=== PATIENT | female | born 1975 | race Caucasian/White ===

== ENCOUNTER 2023-04-19 10:15 | Outpatient (CLI) | payer OTHER, SELFPAY ==
--- NOTE | 2023-04-19 10:45 | MM_ITS ---
Patient: MARKOS POWER Facility:?[facility] Patient ID:?[id number] Site Patient ID:?[id number]. Site :?1975 Study:?XRay-Breast Bilateral 3D screening mammogram w/cad-04/19/2023 10:52:45 AM Ordering Physician:NAPOLEON Final Report: BILATERAL DIGITAL SCREENING MAMMOGRAM WITH COMPUTER-AIDED DETECTION AND TOMOSYNTHESIS CLINICAL HISTORY: Routine screening exam. COMPARISON: 04/26/2021, 04/22/2020, 03/09/2019, 02/12/2017 TECHNIQUE: Digital mammogram in CC and MLO projections including computer-aided detection (CAD) and tomosynthesis. BREAST COMPOSITION: There are scattered areas of fibroglandular density. FINDINGS: RIGHT Breast: Focal asymmetric density lateral right breast CC view only, 12 cm from the nipple. LEFT Breast: No suspicious findings. IMPRESSION: RIGHT breast asymmetry/mass. RECOMMENDATIONS: Additional mammographic views of the RIGHT breast including 3D spot compression CC and 3D true lateral. RIGHT breast ultrasound may also be required. The [facility] will contact the patient. A lay language report of this examination will be provided to the patient. BI-RADS Category 0: Incomplete: Need Additional Imaging Evaluation and/or Prior Mammograms for Comparison Dictated by Ezio Sandhu MD @ 04/19/2023 12:07:[address]/Dictated by: Ezio Sandhu MD @ 04/19/2023 12:07:00 PM Signed by:?Ezio Sandhu MD @04/19/2023 3:00:03 PM (Electronic Signature)
== END 2023-04-19 10:16 | disposition home or self-care (01) ==
LOC: MAMMO 10:16
PROVIDERS: PCP Family Medicine; Visit Provider Obstetrics & Gynecology
DX: Z12.31 Encounter for screening mammogram for malignant neoplasm of breast (principal); N63.10 Unspecified lump in the right breast, unspecified quadrant
CPT/HCPCS: 77063; 77067

== ENCOUNTER 2023-04-26 10:34 | Outpatient (CLI) | payer OTHER, SELFPAY | END 2023-04-26 10:35 | disposition home or self-care (01) | LOC: NFLDREF 05-01 12:26 | PROVIDERS: PCP Family Medicine; Referring Provider Family Medicine; Visit Provider Obstetrics & Gynecology | DX: Z13.220 Encounter for screening for lipoid disorders (principal); Z13.818 Encounter for screening for other digestive system disorders | CPT/HCPCS: 80061; 84450; 84460 ==

== ENCOUNTER 2023-05-01 07:31 | Outpatient (CLI) | payer OTHER, SELFPAY ==
--- NOTE | 2023-05-01 07:45 | MM_ITS ---
Patient: MARKOS POWER Facility:?[facility] Patient ID:?[id number] Site Patient ID:?[id number]. Site :?1975 Study:?XRay-Breast Right 3D W/CAD-05/01/2023 8:37:52 AM Ordering Physician:?Eduarda Noonan Final Report: DIGITAL DIAGNOSTIC RIGHT MAMMOGRAM PERFORMED USING TOMOSYNTHESIS AND COMPUTER- AIDED DETECTION RIGHT BREAST ULTRASOUND CLINICAL HISTORY: RIGHT breast mass/asymmetry. COMPARISON: 04/19/2023. TECHNIQUE: Digital RIGHT mammogram in two projections. Tomosynthesis and CAD utilized. Real-time ultrasound imaging of RIGHT breast with imaging documentation. Scanning was performed by both the technologist and the radiologist. BREAST COMPOSITION: There are areas of scattered fibroglandular density. FINDINGS: 3D true lateral and 3D spot compression CC RIGHT breast mammogram images submitted. Focal asymmetric density located within the inferior RIGHT breast. No suspicious calcifications. Targeted RIGHT breast ultrasound performed. At 7 o`clock 8 cm from the nipple, there is a hypoechoic structure measuring 3 x 3 x 3 millimeters. Mild fibrocystic changes are present adjacent to this region. IMPRESSION: Indeterminate 3 millimeter hypoechoic structure RIGHT breast 7 o`clock 8 cm from the nipple at mid depth associated with fibroglandular tissue. RECOMMENDATIONS: Ultrasound-guided core needle biopsy. Results and recommendations discussed with the patient. BI-RADS Category 4: Suspicious A lay language report of this examination will be provided to the patient. Dictated by Ezio Sandhu MD @ 05/01/2023 12:03:39 PM jj/Dictated by: Ezio Sandhu MD @ 05/01/2023 12:03:00 PM Signed by:?Ezio Sandhu MD @05/01/2023 2:42:43 PM (Electronic Signature)
--- NOTE | 2023-05-01 08:15 | US_ITS ---
Patient: MARKOS POWER Facility:?[facility] Patient ID:?[id number] Site Patient ID:?[id number]. Site :?1975 Study:?US-Breast Right -05/01/2023 8:38:33 AM Ordering Physician:NAPOLEON Final Report: PLEASE SEE DIGITAL DIAGNOSTIC RIGHT MAMMOGRAM PERFORMED SAME DAY CRL:max santana/Dictated by: Ezio Sandhu MD @ 05/01/2023 12:03:00 PM Signed by:?Ezio Sandhu MD @05/01/2023 2:42:44 PM (Electronic Signature)
== END 2023-05-01 07:32 | disposition home or self-care (01) ==
PROVIDERS: PCP Family Medicine; Visit Provider Obstetrics & Gynecology
DX: N63.10 Unspecified lump in the right breast, unspecified quadrant (principal); R92.8 Other abnormal and inconclusive findings on diagnostic imaging of breast
CPT/HCPCS: 76642; 77065; G0279

== ENCOUNTER 2023-05-17 10:54 | Outpatient (CLI) | payer OTHER, SELFPAY ==
--- NOTE | 2023-05-17 11:15 | US_ITS ---
Patient: MARKOS POWER Facility:?[facility] Patient ID:?[id number] Site Patient ID:?[id number]. Site :?1975 Study:?US-Breast Right DR PAGAN TO READ-05/17/2023 11:56:40 AM Ordering Physician:?ADOLPH DALEY Final Report: ULTRASOUND-GUIDED CORE NEEDLE BREAST BIOPSY OF TWO OR MORE SITES AND POST-BIOPSY DIGITAL MAMMOGRAM FOR BIOPSY MARKER PLACEMENT CLINICAL HISTORY: Indeterminate solid nodules. COMPARISON STUDIES: 05/01/2023. TECHNIQUE: Real-time ultrasound with image documentation was used for targeting the breast lesions. A core needle biopsy system was used to obtain core tissue samples with an 18 gauge needle. Post-biopsy CC and ML digital mammograms were obtained to document position of the biopsy marker. CONSENT and TIME OUT: The procedure, risks, and alternatives were explained to the patient and a consent was signed. [place] Protocol was followed including pre-procedure verification that relevant information/documentation was available, reviewed and properly matched to the patient; consent accurate and complete; and equipment and supplies available. Time Out was conducted just prior to starting procedure to verify the four required elements: patient identity, correct side/site marked (if applicable), procedure, relevant images/results properly labeled and displayed (if applicable). PROCEDURE: All biopsies were performed in a similar manner. The patient was positioned supine on the ultrasound table. The breast was prepped with Betadine. 8 cc of 1 percent lidocaine used for local anesthesia. Core samples were obtained. A sterile metal biopsy clip was placed percutaneously to laura the lesion position within the breast. The specimens were placed in 10% formalin and sent to the Pathology Department. Pressure was held on the biopsy site until all bleeding subsided. The skin incision was closed with Steri-Strips. An ice pack was positioned over the biopsy site. The patient tolerated the procedure well. Post- biopsy instructions were reviewed with the patient, and a written copy was given to her. SITE A: LATERALITY: Right breast. LESION: 3 millimeter hypoechoic solid nodule 7 o`clock 8 cm from the nipple. SUSPICION: Low. NUMBER OF SAMPLES: 3 BIOPSY CLIP SHAPE: HydroMARK coil. PROXIMITY OF CLIP TO TARGET: Within the lesion. SITE B: LATERALITY: Right breast. LESION: 2 millimeter hypoechoic solid nodule 7 o`clock 8 cm from the nipple. SUSPICION: Low. NUMBER OF SAMPLES: 2. BIOPSY CLIP SHAPE: Oval. PROXIMITY OF CLIP TO TARGET: Within the lesion. DISTANCE BETWEEN: Sites A and B: 1 cm. IMPRESSION: Ultrasound-guided breast biopsy of two or more sites. When the pathology report is available, an addendum to this report will be made. ACR not applicable Dictated by Ezio Pagan MD @ 05/17/2023 1:13:25 PM LORENA/Dictated by: Ezio Pagan MD @ 05/17/2023 1:13:00 PM Signed by:?Ezio Pagan MD @05/17/2023 3:12:34 PM --ADDENDUM-- ADDENDUM: Site A: Negative for atypia and malignancy. Normal fibrocystic wall. This is concordant. Site B: Lobular carcinoma in situ with nodular proliferative fibrocystic change. No invasive malignancy. Surgical referral recommended for consideration of excision versus high risk follow-up. Dictated by: Ezio Pagan MD @05/21/2023 12:00:20 PM/CRL:pjt Signed by:?Ezio Pagan MD @05/21/2023 1:44:13 PM (Electronic Signature)
--- NOTE | 2023-05-17 12:00 | MM_ITS ---
Patient: MARKOS POWER Facility:?[facility] Patient ID:?[id number] Site Patient ID:?[id number]. Site :?1975 Study:?XRay-Breast Right 2D post clip placement-05/17/2023 11:56:33 AM Ordering Physician:?Saran Final Report: PLEASE SEE RIGHT BREAST ULTRASOUND-GUIDED BIOPSY OF SAME DAY. CRL:prisca LORENA/Dictated by: Ezio Sandhu MD @ 05/17/2023 1:13:00 PM Signed by:?Ezio Sandhu MD @05/17/2023 3:12:32 PM (Electronic Signature)
== END 2023-05-17 10:55 | disposition home or self-care (01) ==
LOC: US 10:54
PROVIDERS: PCP Family Medicine; Visit Provider Obstetrics & Gynecology
DX: N63.10 Unspecified lump in the right breast, unspecified quadrant (principal); D05.01 Lobular carcinoma in situ of right breast; R92.8 Other abnormal and inconclusive findings on diagnostic imaging of breast
CPT/HCPCS: 19083; 19084; 77065; 88305; A4648; A4649

== ENCOUNTER 2023-08-22 14:04 | Outpatient (CLI) | payer OTHER, SELFPAY ==
--- NOTE | 2023-08-22 14:30 | CRLHL7_ITS ---
For Patients: As a result of the 21st Century Cures Act, medical imaging exams and procedure reports are released immediately into your electronic medical record. You may view this report before your referring provider. If you have questions, please contact your health care provider. BILATERAL BREAST MRI WITHOUT AND WITH GADOLINIUM CLINICAL HISTORY: 48-year-old female with elevated risk of breast cancer due to recent biopsy demonstrating lobular carcinoma in-situ. INDICATION FOR BREAST MRI: Screening breast MRI in this high-risk woman. COMPARISON STUDIES: Mammogram 04/26/2021, 04/19/2023, additional mammographic views of the RIGHT breast and RIGHT breast ultrasound 05/01/2023, ultrasound-guided biopsy and postprocedure mammogram 05/17/2023. CONTRAST: 24 cc of Dotarem contrast was administered intravenously. TECHNIQUE: The patient was positioned prone using a breast coil. Multiple imaging sequences were obtained using 1-1.5 mm thick slices with no gap. The image sequences include T2-weighted STIR in the axial plane, T1-weighted nonfat-saturated gradient echo in the axial plane, pre- and post-contrast T1-weighted FLASH 3D with fat suppression in the axial plane, and T1-weighted FLASH high resolution 3D with fat suppression in the sagittal plane. Image post-processing was performed on a DynaPump workstation. Complex 3D rendering including maximum intensity projections (MIPS) and volumetric renderings were obtained to optimize visualization of the extent of pathology and relationship to the nipple, skin, and chest wall. This aids in determining feasibility of breast conservation surgery. Subtraction, multiplanar reconstruction, mean curve determination, and angiogenesis mapping were also performed. The study was technically adequate. FINDINGS: Amount of Fibroglandular Tissue: Scattered fibroglandular tissue. Breast Background Enhancement: Mild. RIGHT Breast: At 10-11 o`clock, posterior depth, proximally 10 cm from the nipple there are two adjacent masses. The more inferior mass is irregular with spiculated margins measuring 1.1 x 0.9 x 1.1 cm. This demonstrates fast initial enhancement with washout. The second smaller mass is located just superiorly and is oval with circumscribed margins measuring 0.4 cm. This demonstrates fast initial enhancement with plateau kinetics. Susceptibility artifact from a biopsy marker clip is present in the inferior breast at the site of recent biopsy. LEFT Breast: No suspicious areas of enhancement. Lymph Nodes: No adenopathy. IMPRESSIONS AND RECOMMENDATIONS: RIGHT Breast: 1. Two adjacent RIGHT breast masses at 10-11 o`clock, posterior depth, are suspicious. Recommend targeted ultrasound and ultrasound-guided biopsy. If there is no sonographic correlate, recommend MRI-guided biopsy of the larger mass. Given the close proximity it is unlikely these masses could be biopsied separately with MRI guidance. 2. No adenopathy. LEFT Breast: Negative, there is no MRI evidence of contralateral malignancy. BI-RADS Category 4: Suspicious Dictated by Rafaela Obrien MD @ 08/28/2023 12:42:35 PM randal/Dictated by: Rafaela Obrien MD @ 08/28/2023 12:42:00 PM (Electronically Signed)
== END 2023-08-22 14:05 | disposition home or self-care (01) ==
LOC: MRI 14:05
PROVIDERS: PCP Family Medicine; Visit Provider Surgery
DX: D05.01 Lobular carcinoma in situ of right breast (principal); N63.10 Unspecified lump in the right breast, unspecified quadrant
CPT/HCPCS: 77049; A9575

== ENCOUNTER 2023-08-28 14:30 | Outpatient (RCR) | payer OTHER, SELFPAY ==
--- NOTE | 2023-08-01 14:14 | ONC.NURNOTE ---
Call to patient to see how she is tolerating Tamoxifen. Patient states she hasn't started it yet. She reports feeling too afraid, primarily of the risk for blood clots. She explains that she understands the risk is low but she couldn't even bring myself to pick it up. She is leaning towards not taking endocrine therapy and doing every 6 month imaging but will discuss it further with Dr. Rosa on 08/25. Her breast MRI is scheduled for 08/08.
--- NOTE | 2023-10-16 14:00 | ONC.NURNOTE ---
Patient called to update us on her genetic testing results. Report scanned into chart. 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 Patient is discussing with her team at [facility] about the possibility of prophylactic BSO at the time of her mastectomy on 10/27. [facility] will touch base with Smiley after her surgery to discuss ongoing oncology care.
== END 2023-12-23 23:59 | disposition home or self-care (01) ==
LOC: CCIC 14:30
PROVIDERS: PCP Obstetrics & Gynecology; Visit Provider Internal Medicine Hematology & Oncology
DX: D05.01 Lobular carcinoma in situ of right breast (principal); E66.9 Obesity, unspecified
CPT/HCPCS: 99202; 99205; 99214; G0463

== ENCOUNTER 2023-09-03 09:02 | Outpatient (CLI) | payer OTHER, SELFPAY ==
--- NOTE | 2023-09-03 09:15 | CRLHL7_ITS ---
For Patients: As a result of the Century Cures Act, medical imaging exams and procedure reports are released immediately into your electronic medical record. You may view this report before your referring provider. If you have questions, please contact your health care provider. RIGHT BREAST ULTRASOUND CLINICAL HISTORY: Abnormal RIGHT breast finding on MRI. COMPARISON: MRI 08/22/2023. TECHNIQUE: Real-time ultrasound imaging of RIGHT breast with imaging documentation. Scanning was performed by both the technologist and the radiologist. FINDINGS: Targeted RIGHT breast ultrasound performed in the upper outer quadrant 10 o`clock 10 cm from the nipple. There is a small hypoechoic nodule measuring 4 x 4 x 4 millimeters at mid depth. An additional heterogeneous hypoechoic solid nodule is present at 10 o`clock 10 cm from the nipple measuring 7 x 5 x 7 millimeters. These lesions are proximally 6 millimeters apart. IMPRESSION: Indeterminate solid nodules RIGHT breast 10 o`clock 10 cm from the nipple measuring 4 millimeters and 7 millimeters corresponding to the MRI. RECOMMENDATIONS: Ultrasound-guided core biopsy of both lesions will be subsequently performed. Results and recommendations were discussed with the patient at the time of the exam. BI-RADS Category 4: Suspicious A lay language report of this examination will be provided to the patient. Dictated by Ezio Sandhu MD @ 09/03/2023 10:43:28 AM /Dictated by: Ezio Sandhu MD @ 09/03/2023 10:43:00 AM (Electronically Signed)
--- NOTE | 2023-09-03 09:15 | CRLHL7_ITS ---
For Patients: As a result of the Century Cures Act, medical imaging exams and procedure reports are released immediately into your electronic medical record. You may view this report before your referring provider. If you have questions, please contact your health care provider. ULTRASOUND-GUIDED VACUUM-ASSISTED BREAST BIOPSY OF TWO OR MORE SITES AND POST-BIOPSY DIGITAL MAMMOGRAM FOR BIOPSY MARKER PLACEMENT CLINICAL HISTORY: Indeterminate nodules on MRI and ultrasound RIGHT breast. COMPARISON STUDIES: Ultrasound same day and MRI 08/22/2023. TECHNIQUE: Real-time ultrasound with image documentation was used for targeting the breast lesions. A core biopsy system was used to obtain core tissue samples with an 18-gauge needle. Post-biopsy CC and ML digital mammograms were obtained to document position of the biopsy marker. CONSENT and TIME OUT: The procedure, risks, and alternatives were explained to the patient and a consent was signed. [place] Protocol was followed including pre-procedure verification that relevant information/documentation was available, reviewed and properly matched to the patient; consent accurate and complete; and equipment and supplies available. Time Out was conducted just prior to starting procedure to verify the four required elements: patient identity, correct side/site marked (if applicable), procedure, relevant images/results properly labeled and displayed (if applicable). PROCEDURE: All biopsies were performed in a similar manner. The patient was positioned supine on the ultrasound table. The breast was prepped with Betadine. 8 cc of 1 percent lidocaine used for local anesthesia. Core samples were obtained. A sterile metal biopsy clip was placed percutaneously to laura the lesion position within the breast. The specimens were placed in 10% formalin and sent to the Pathology Department. Pressure was held on the biopsy site until all bleeding subsided. The skin incision was closed with Steri-Strips. An ice pack was positioned over the biopsy site. The patient tolerated the procedure well. Post-biopsy instructions were reviewed with the patient, and a written copy was given to her. SITE A: LATERALITY: RIGHT breast. LESION: Solid hypoechoic nodule measuring 4 x 4 x 4 millimeters at mid depth. SUSPICION: High. NUMBER OF SAMPLES: 5. BIOPSY CLIP SHAPE: Oval. PROXIMITY OF CLIP TO TARGET: Within the lesion. SITE B: LATERALITY: RIGHT breast. LESION: Heterogeneous solid nodule with distal shadowing measuring 7 x 5 x 7 millimeters at mid depth, slightly posterior to Site A. SUSPICION: High. NUMBER OF SAMPLES: 5. BIOPSY CLIP SHAPE: HydroMARK. PROXIMITY OF CLIP TO TARGET: Within the lesion. DISTANCE BETWEEN: Sites A and B: 6 millimeters. IMPRESSION: Ultrasound-guided breast biopsy of two or more sites. When the pathology report is available, an addendum to this report will be made. ACR not applicable Dictated by Ezio Sandhu MD @ 09/03/2023 10:45:59 AM jj/Dictated by: Ezio Sandhu MD @ 09/03/2023 10:45:00 AM (Electronically Signed)
--- NOTE | 2023-09-03 10:00 | CRLHL7_ITS ---
For Patients: As a result of the Century Cures Act, medical imaging exams and procedure reports are released immediately into your electronic medical record. You may view this report before your referring provider. If you have questions, please contact your health care provider. PLEASE SEE ULTRASOUND-GUIADED RIGHT BREAST BIOPSY PERFORMED SAME DAY CRL:max santana/Dictated by: Ezio Sandhu MD @ 09/03/2023 11:29:00 AM (Electronically Signed)
== END 2023-09-03 09:03 | disposition home or self-care (01) ==
LOC: US 09:03
PROVIDERS: PCP Obstetrics & Gynecology; Visit Provider Surgery
DX: N63.10 Unspecified lump in the right breast, unspecified quadrant (principal); C50.911 Malignant neoplasm of unspecified site of right female breast; R92.8 Other abnormal and inconclusive findings on diagnostic imaging of breast
CPT/HCPCS: 19083; 76642; 77065; 88305; 88342; 88360; 88361; A4648; A4649

== ENCOUNTER 2024-05-25 13:49 | Outpatient (CLI) | payer OTHER, SELFPAY ==
[2024-05-25 18:00] LABS: Chlamydia DNA Amplified* NOT DETECTED (No Detected); GC DNA Amplified* NOT DETECTED (No Detected)
[2024-05-27 15:43] LABS: HPV Source Cervix; HPV, High Risk by TMA Not Detected
== END 2024-05-25 13:50 | disposition home or self-care (01) ==
PROVIDERS: Visit Provider Obstetrics & Gynecology
DX: Z12.4 Encounter for screening for malignant neoplasm of cervix (principal); Z11.51 Encounter for screening for human papillomavirus (HPV); Z11.3 Encounter for screening for infections with a predominantly sexual mode of transmission; Z11.59 Encounter for screening for other viral diseases; Z11.4 Encounter for screening for human immunodeficiency virus [HIV]; Z01.84 Encounter for antibody response examination
CPT/HCPCS: 86592; 86703; 86706; 86803; 87340; 87491; 87591; 87624; 87625; 88141; 88142

== ENCOUNTER 2024-06-26 08:25 | Outpatient (CLI) | payer OTHER, SELFPAY | END 2024-06-26 08:26 | disposition home or self-care (01) | LOC: NFLDREF 07-03 00:39 | PROVIDERS: Visit Provider Obstetrics & Gynecology | DX: Z13.6 Encounter for screening for cardiovascular disorders (principal) | CPT/HCPCS: 80061 ==